=== PATIENT | male | born 2000 | race African-American/Black ===

== ENCOUNTER 2024-11-23 20:54 | Emergency (ER) | payer OTHER ==
[2024-11-23 21:29] VITALS: BP 117/77; PULSE 81; RESP 17; TEMP 97.3; BMI 24.3
[2024-11-23] MEDS ORDERED: ACETAMINOPHEN 325 MG TABLET (FP) ONE (22:20)
[2024-11-23] MEDS ORDERED: KETOROLAC TROMETHAMINE 30 MG/1 ML VIAL ONE (22:20)
[2024-11-23] MEDS: ACETAMINOPHEN 325 MG TABLET (FP) PO ONE (22:27)
[2024-11-23] MEDS: KETOROLAC TROMETHAMINE 30 MG/1 ML VIAL IM ONE (22:28)
== END 2024-11-23 23:08 | disposition home or self-care (01) ==
LOC: JER 20:54
PROC: 3E0233Z Introduction of Anti-inflammatory into Muscle, Percutaneous Approach (ICD-10-PCS; principal; 2024-11-23)
DX: M54.50 Low back pain, unspecified (principal); M25.521 Pain in right elbow; M25.552 Pain in left hip; M54.2 Cervicalgia; V49.50XA Passenger injured in collision with unspecified motor vehicles in traffic accident, initial encounter; Y92.410 Unspecified street and highway as the place of occurrence of the external cause
CPT/HCPCS: 70450-TC; 71046-TC-FY; 72125-TC; 72170-TC-FY; 73070-TC-RT-FY; 73502-TC-LT-FY; 99285-25